=== PATIENT | female | born 1990 | race Hispanic/Latino ===

== ENCOUNTER 2018-09-06 19:24 | Inpatient (IN) | payer BC, OTHER ==
[~2018-09-06] VITALS: Ht 157.5 cm; Wt 82.6 kg
[2018-09-06] MEDS ORDERED: SODIUM CHLORIDE 0.9% 1000ML 1,000 ML IV ONE (20:05)
[2018-09-06 20:08] LABS: BILIRUBIN,URINE Negative (NEGATIVE); COLOR,URINE Yellow (YELLOW); GLUCOSE, URINE (UA) Negative (NEGATIVE); KETONES,URINE 15 mg/dL (NEGATIVE); LEUKOCYTE ESTERASE ,URINE Large (NEGATIVE); NITRATE,URINE Negative (NEGATIVE); OCCULT BLOOD,URINE Large (NEGATIVE); PROTEIN,URINE POS 2+ (NEGATIVE)
[2018-09-06 20:10] LABS: BASOPHILS % (AUTO) 0.1 % (0.0-5.0); EOSINOPHILS % (AUTO) 0.6 % (0.0-8.0); LYMPHOCYTES % (AUTO) 3.5 % (21.0-51.0); MEAN CORPUSCULAR HEMOGLOBIN 32.6 pg (27.0-33.0); MEAN CORPUSCULAR HGB CONC 33.5 g/dL (32.0-36.0); MEAN CORPUSCULAR VOLUME 97.3 fL (79-99); MONOCYTES % (AUTO) 2.6 % (3.0-13.0); NEUTROPHILS % (AUTO) 93.2 % (40.0-77.0); NUCLEATED RED BLOOD CELLS 0.1 % (0.0-0.19); PLATELET COUNT (AUTO) 201 K/uL (130-400); RED BLOOD CELL COUNT(AUTO) 4.62 MIL/uL (4.00-5.50); RED CELL DISTRIBUTION WIDTH 13.6 % (11.0-15.5)
[2018-09-06 20:20] LABS: APPEARANCE,URINE CLOUDY (CLEAR)
[2018-09-06 20:22] LABS: HCG,QUAL RESULT NEGATIVE (NEGATIVE)
[2018-09-06 20:28] LABS: BILIRUBIN,TOTAL 1.3 mg/dL (0.2-1.0); CREATININE 1.2 mg/dL (0.5-1.5); TOTAL PROTEIN, SERUM 8.2 g/dL (6.0-8.3)
[2018-09-06 20:39] LABS: POTASSIUM 2.9 mmol/L (3.5-5.1)
[2018-09-06 20:44] LABS: BACTERIA,URINE Few /HPF (None Seen); RBC,URINE 26-50 /HPF (0-1); SQUAMOUS EPITHELIAL CELL,UR 0-2 /HPF (0-2); WBC,URINE >100 /HPF (0-1)
[2018-09-06] MEDS ORDERED: CEFTRIAXONE SODIUM 1 GM ONE (20:51)
[2018-09-06] MEDS ORDERED: MAGNESIUM 2GM PREMIX 50ML 50 ML IV PRN (21:45)
[2018-09-06] MEDS ORDERED: POTASSIUM CHLORIDE 20MEQ/100ML 100 ML IV PRN (21:45)
[2018-09-06] MEDS ORDERED: POTASSIUM CHLORIDE 10% ELIXIR 20 MEQ/15 ML UDCUP PO PRN (21:45)
[2018-09-06] MEDS ORDERED: LIDOCAINE HCL-MPF 1% 2ML VIAL IVP PRN (21:45)
[2018-09-06] MEDS: CEFTRIAXONE SODIUM 1 GM IVP SCH (22:00)
[2018-09-06] MEDS ORDERED: KETOROLAC TROMETHAMINE 30MG/ML ONE (22:01)
[2018-09-06 22:11] LABS: PHOSPHORUS 2.5 mg/dL (2.5-4.9); THYROID STIMULATING HORMONE 0.87 uIU/mL (0.36-3.74)
[2018-09-06] MEDS ORDERED: POTASSIUM CHLORIDE 20MEQ/100ML 100 ML IV ONE (22:40)
[2018-09-06] MEDS ORDERED: LIDOCAINE HCL-MPF 1% 2ML VIAL ONE (22:41)
[2018-09-06 23:15] VITALS: BP 102/64
[2018-09-06] MEDS: POTASSIUM CHLORIDE 20 MEQ ERTAB PO PRN (23:52)
[2018-09-06] MEDS: SODIUM CHLORIDE 0.9% 1000ML 1,000 ML IV SCH (23:52)
[2018-09-07] MEDS: MORPHINE SULFATE 4 MG/1ML SYG IV PRN ×3 (01:31→17:06)
[2018-09-07] MEDS: POTASSIUM CHLORIDE 20 MEQ ERTAB PO PRN ×2 (02:27→05:25)
[2018-09-07 04:00] VITALS: BP 98/54
[2018-09-07 05:20] LABS: BASOPHILS % (AUTO) 0.2 % (0.0-5.0); EOSINOPHILS % (AUTO) 1.7 % (0.0-8.0); HEMATOCRIT 37.4 % (36-48); LYMPHOCYTES % (AUTO) 7.1 % (21.0-51.0); MEAN CORPUSCULAR HGB CONC 33.4 g/dL (32.0-36.0); MEAN CORPUSCULAR VOLUME 98.8 fL (79-99); MONOCYTES % (AUTO) 3.7 % (3.0-13.0); NEUTROPHILS % (AUTO) 87.3 % (40.0-77.0); PLATELET COUNT (AUTO) 189 K/uL (130-400); RED BLOOD CELL COUNT(AUTO) 3.79 MIL/uL (4.00-5.50); RED CELL DISTRIBUTION WIDTH 13.8 % (11.0-15.5); WHITE BLOOD COUNT (AUTO) 13.6 K/uL (4.8-10.8)
[2018-09-07] MEDS: KETOROLAC TROMETHAMINE 30MG/ML IV PRN ×2 (05:25→13:18)
[2018-09-07 05:40] LABS: ALBUMIN 2.6 g/dL (3.5-5.0); BILIRUBIN,TOTAL 0.8 mg/dL (0.2-1.0); CREATININE 0.9 mg/dL (0.5-1.5); MAGNESIUM 2.6 mg/dL (1.80-2.40); POTASSIUM 3.7 mmol/L (3.5-5.1); TOTAL PROTEIN, SERUM 5.8 g/dL (6.0-8.3)
[2018-09-07 05:56] LABS: CRP QUANTITATIVE 274.1 mg/L (0.00-9.0)
[2018-09-07 08:00] VITALS: BP 105/77
[2018-09-07] MEDS: SODIUM CHLORIDE 0.9% 1000ML 1,000 ML IV SCH ×2 (09:39→17:10)
[2018-09-07] MEDS: PANTOPRAZOLE SODIUM 40 MG TABLET.DR PO SCH (09:39)
[2018-09-07] MEDS: ONDANSETRON HCL 4 MG/2 ML VIAL IV PRN ×2 (09:41→17:06)
[2018-09-07] MEDS: ENOXAPARIN SODIUM 30 MG/0.3 ML SQ SCH (09:41)
[2018-09-07 12:00] VITALS: BP 102/65
[2018-09-07 16:00] VITALS: BP 106/58
[2018-09-07 17:02] LABS: CREATININE 0.8 mg/dL (0.5-1.5); POTASSIUM 3.8 mmol/L (3.5-5.1)
[2018-09-07 19:00] VITALS: BP 106/62
[2018-09-07] MEDS: ACETAMINOPHEN 325 MG TAB PO PRN (20:40)
[2018-09-07] MEDS: CEFTRIAXONE SODIUM 1 GM IVP SCH (21:40)
[2018-09-07] MEDS ORDERED: KETOROLAC TROMETHAMINE 15MG/ML ONE (21:41)
[2018-09-07 23:00] VITALS: BP 100/60
[2018-09-08] MEDS: SODIUM CHLORIDE 0.9% 1000ML 1,000 ML IV SCH (00:16)
[2018-09-08 03:00] VITALS: BP 96/61
[2018-09-08 05:24] LABS: BASOPHILS % (AUTO) 0.2 % (0.0-5.0); EOSINOPHILS % (AUTO) 1.8 % (0.0-8.0); HEMATOCRIT 37.5 % (36-48); LYMPHOCYTES % (AUTO) 9.3 % (21.0-51.0); MEAN CORPUSCULAR HEMOGLOBIN 32.4 pg (27.0-33.0); MEAN CORPUSCULAR HGB CONC 32.8 g/dL (32.0-36.0); MEAN CORPUSCULAR VOLUME 98.7 fL (79-99); MONOCYTES % (AUTO) 5.8 % (3.0-13.0); NEUTROPHILS % (AUTO) 82.9 % (40.0-77.0); PLATELET COUNT (AUTO) 172 K/uL (130-400); RED CELL DISTRIBUTION WIDTH 13.9 % (11.0-15.5); WHITE BLOOD COUNT (AUTO) 9.8 K/uL (4.8-10.8)
[2018-09-08] MEDS: ONDANSETRON HCL 4 MG/2 ML VIAL IV PRN ×2 (05:30→17:11)
[2018-09-08] MEDS: ACETAMINOPHEN 325 MG TAB PO PRN ×2 (05:30→20:39)
[2018-09-08 06:06] LABS: CREATININE 0.8 mg/dL (0.5-1.5); MAGNESIUM 2.2 mg/dL (1.80-2.40); PHOSPHORUS 2.3 mg/dL (2.5-4.9); POTASSIUM 3.7 mmol/L (3.5-5.1); THYROID STIMULATING HORMONE 1.65 uIU/mL (0.36-3.74); URIC ACID 2.5 mg/dL (2.6-7.2)
[2018-09-08 06:20] LABS: CRP QUANTITATIVE 309.3 mg/L (0.00-9.0)
[2018-09-08] MEDS: MORPHINE SULFATE 2 MG/ML 1ML SYG IV PRN (06:47)
[2018-09-08 08:00] VITALS: BP 110/74
[2018-09-08] MEDS: KETOROLAC TROMETHAMINE 30MG/ML IV PRN ×2 (11:07→20:33)
[2018-09-08] MEDS: CEFTRIAXONE SODIUM 1 GM IVP SCH ×2 (11:08→21:40)
[2018-09-08] MEDS: PANTOPRAZOLE SODIUM 40 MG TABLET.DR PO SCH (11:09)
[2018-09-08] MEDS: ENOXAPARIN SODIUM 30 MG/0.3 ML SQ SCH (11:42)
[2018-09-08 12:00] VITALS: BP 117/77
[2018-09-08 16:00] VITALS: BP 109/75
[2018-09-08] MEDS: MORPHINE SULFATE 2 MG/ML 1ML SYG IVP PRN (17:13)
[2018-09-08 19:00] VITALS: BP 122/76
[2018-09-08 23:00] VITALS: BP 114/66
[2018-09-09] MEDS ORDERED: SODIUM CHLORIDE 0.9% 1000ML 1,000 ML IV ONE (00:48)
[2018-09-09 03:00] VITALS: BP 116/81
[2018-09-09] MEDS: KETOROLAC TROMETHAMINE 30MG/ML IV PRN (03:09)
[2018-09-09 05:37] LABS: HEMATOCRIT 34.4 % (36-48); MEAN CORPUSCULAR HEMOGLOBIN 33.4 pg (27.0-33.0); MEAN CORPUSCULAR HGB CONC 33.9 g/dL (32.0-36.0); MEAN CORPUSCULAR VOLUME 98.7 fL (79-99); PLATELET COUNT (AUTO) 226 K/uL (130-400); RED BLOOD CELL COUNT(AUTO) 3.49 MIL/uL (4.00-5.50); RED CELL DISTRIBUTION WIDTH 13.4 % (11.0-15.5); WHITE BLOOD COUNT (AUTO) 7.8 K/uL (4.8-10.8)
[2018-09-09 05:56] LABS: CREATININE 0.7 mg/dL (0.5-1.5); MAGNESIUM 1.8 mg/dL (1.80-2.40); PHOSPHORUS 2.5 mg/dL (2.5-4.9); POTASSIUM 3.4 mmol/L (3.5-5.1)
[2018-09-09 06:21] LABS: CRP QUANTITATIVE 222.7 mg/L (0.00-9.0)
[2018-09-09] MEDS: POTASSIUM CHLORIDE 20 MEQ ERTAB PO PRN ×2 (06:41→10:05)
[2018-09-09 07:30] VITALS: BP 114/80
[2018-09-09] MEDS: CEFTRIAXONE SODIUM 1 GM IVP SCH (10:04)
[2018-09-09] MEDS: PANTOPRAZOLE SODIUM 40 MG TABLET.DR PO SCH (10:05)
[2018-09-09] MEDS: ENOXAPARIN SODIUM 30 MG/0.3 ML SQ SCH (10:06)
[2018-09-09 11:00] VITALS: BP 119/76
[2018-09-09] MEDS ORDERED: SULFAMETHOX-TMP DS 800/160 TAB PO SCH ×2 (11:30→21:00)
[2018-09-09] MEDS: MORPHINE SULFATE 2 MG/ML 1ML SYG IV PRN (11:46)
[2018-09-09] MEDS ORDERED: TRAM50TA4 PO (14:30)
[2018-09-09] MEDS ORDERED: SULF1TAB42 PO (14:30)
[2018-09-09] MEDS: MORPHINE SULFATE 2 MG/ML 1ML SYG IVP PRN (14:44)
[2018-09-09 16:00] VITALS: BP 116/73
[2018-09-09] MEDS ORDERED: MORPHINE SULFATE 2 MG/ML 1ML SYG IVP ONE (16:00)
[2018-09-09] MEDS ORDERED: LACTULOSE 20 GM/30 ML UDCUP PO SCH (21:00)
== END 2018-09-09 16:26 | disposition home or self-care (01) | DRG 872 ==
LOC: EDH 19:24 → EDHIP 19:25 → 3BH 22:07
PROVIDERS: ADMIT Internal Medicine; ATTEND Internal Medicine
DX: A41.9 Sepsis, unspecified organism (principal); N10 Acute pyelonephritis; N17.9 Acute kidney failure, unspecified; R65.20 Severe sepsis without septic shock; E83.59 Other disorders of calcium metabolism; N29 Other disorders of kidney and ureter in diseases classified elsewhere; E87.6 Hypokalemia; E86.1 Hypovolemia; Z68.33 Body mass index [BMI] 33.0-33.9, adult; E66.9 Obesity, unspecified; E83.42 Hypomagnesemia; F17.210 Nicotine dependence, cigarettes, uncomplicated; N28.1 Cyst of kidney, acquired; B96.20 Unspecified Escherichia coli [E. coli] as the cause of diseases classified elsewhere; Z16.12 Extended spectrum beta lactamase (ESBL) resistance; Z79.899 Other long term (current) drug therapy
CPT/HCPCS: 36415; 74176; 76770; 80048; 80053; 80339; 81001; 81025; 83605; 83735; 83970; 84100; 84443; 84550; 84702; 85025; 85027; 86140; 87040; 87077; 87088; 87186; 93005; A4218; J0696; J1650; J1885; J2270; J2405; J3475; J3480; J3490; J7030

== ENCOUNTER 2023-02-16 14:59 | Emergency (ER) | payer MEDICAID ==
[~2023-02-16] VITALS: Ht 157.5 cm; Wt 56.2 kg
[~2023-02-16 14:59] MED LIST: SULF1TAB42 PO; TRAM50TA4 PO
[2023-02-16 15:10] VITALS: BP 128/81
[2023-02-16 16:29] LABS: BASOPHILS % (AUTO) 0.6 % (0.0-5.0); EOSINOPHILS % (AUTO) 1.7 % (0.0-8.0); HEMATOCRIT 39.9 % (36-48); LYMPHOCYTES % (AUTO) 17.9 % (21.0-51.0); MEAN CORPUSCULAR HEMOGLOBIN 30.7 pg (27.0-33.0); MEAN CORPUSCULAR HGB CONC 34.1 g/dL (32.0-36.0); MEAN CORPUSCULAR VOLUME 90.1 fL (79-99); MONOCYTES % (AUTO) 6.4 % (3.0-13.0); NEUTROPHILS % (AUTO) 73.1 % (40.0-77.0); PLATELET COUNT (AUTO) 259 K/uL (130-400); RED BLOOD CELL COUNT(AUTO) 4.43 MIL/uL (4.00-5.50); RED CELL DISTRIBUTION WIDTH 12.9 % (11.0-15.5)
[2023-02-16 16:39] LABS: CREATININE 0.7 mg/dL (0.5-1.5)
[2023-02-16 16:40] LABS: APPEARANCE,URINE CLEAR (CLEAR); BILIRUBIN,URINE NEGATIVE (NEGATIVE); COLOR,URINE LIGHT-YELLOW (YELLOW); GLUCOSE, URINE (UA) NEGATIVE (NEGATIVE); KETONES,URINE NEGATIVE (NEGATIVE); LEUKOCYTE ESTERASE ,URINE 500 Leu/uL (NEGATIVE); NITRATE,URINE NEGATIVE (NEGATIVE); OCCULT BLOOD,URINE NEGATIVE (NEGATIVE); PROTEIN,URINE NEGATIVE (NEGATIVE); UROBILINOGEN,URINE 0.2 mg/dL (0.2-1.0)
[2023-02-16 16:48] LABS: BACTERIA,URINE FEW /HPF (None Seen); MUCUS,URINE RARE LPF (None Seen); SQUAMOUS EPITHELIAL CELL,UR FEW /HPF (0-2)
[2023-02-16 17:17] LABS: TOTAL PROTEIN, SERUM 7.6 g/dL (6.0-8.3)
[2023-02-16] MEDS ORDERED: METOCLOPRAMIDE 10 MG/2 ML VIAL IVP ONE (17:30)
[2023-02-16] MEDS ORDERED: CEFTRIAXONE 1G VIAL IVPB ONE (17:30)
[2023-02-16] MEDS ORDERED: LACTATED RINGERS 1000ML 1,000 ML IV ONE (17:30)
[2023-02-16] MEDS ORDERED: POTASSIUM CHLORIDE 10% ELIXIR 20 MEQ/15 ML UDCUP PO ONE (18:00)
[2023-02-16] MEDS ORDERED: CEPH500T PO (18:12)
[2023-02-16] MEDS ORDERED: METO5 PO (18:12)
== END 2023-02-16 19:27 | disposition home or self-care (01) ==
LOC: EDH 14:59
DX: O21.9 Vomiting of pregnancy, unspecified (principal); O23.41 Unspecified infection of urinary tract in pregnancy, first trimester; N39.0 Urinary tract infection, site not specified; Z3A.10 10 weeks gestation of pregnancy; Z79.899 Other long term (current) drug therapy
CPT/HCPCS: 99285; 96365; 76801; 96375; 80053; 84702; 83690; 85025; 87088; 81001; 36415; J7120; J0696; J2765

== ENCOUNTER 2023-04-28 12:12 | Observation (INO) | payer MEDICAID ==
[~2023-04-28] VITALS: Ht 157.5 cm; Wt 63.5 kg
[~2023-04-28 12:12] MED LIST changes: +CEPH500T PO; +METO5 PO
[2023-04-28 12:13] VITALS: PULSE 95; RESP 17
[2023-04-28] MEDS ORDERED: LACTATED RINGERS 1000ML 1,000 ML IV ONE (13:00)
[2023-04-28] MEDS ORDERED: LACTATED RINGERS 1000ML 1,000 ML IV PRN (13:30)
[2023-04-28 13:42] LABS: APPEARANCE,URINE CLEAR (CLEAR); BILIRUBIN,URINE NEGATIVE (NEGATIVE); COLOR,URINE COLORLESS (YELLOW); GLUCOSE, URINE (UA) NEGATIVE (NEGATIVE); KETONES,URINE NEGATIVE (NEGATIVE); LEUKOCYTE ESTERASE ,URINE 250 Leu/uL (NEGATIVE); NITRATE,URINE NEGATIVE (NEGATIVE); OCCULT BLOOD,URINE NEGATIVE (NEGATIVE); PROTEIN,URINE NEGATIVE (NEGATIVE); UROBILINOGEN,URINE 0.2 mg/dL (0.2-1.0)
[2023-04-28 13:43] LABS: AMPHET/METH SCREEN,URINE NEGATIVE (NEGATIVE); BARBITURATE SCREEN, URINE NEGATIVE (NEGATIVE); BENZODIAZEPINES SCREEN,URINE NEGATIVE (NEGATIVE); CANNABINOID SCREEN,URINE NEGATIVE (NEGATIVE); COCAINE SCREEN,URINE NEGATIVE (NEGATIVE); OPIATE SCREEN,URINE NEGATIVE (NEGATIVE); PHENCYCLIDINE SCREEN,URINE NEGATIVE (NEGATIVE)
[2023-04-28 13:46] LABS: BACTERIA,URINE RARE /HPF (None Seen); RBC,URINE 0-1 /HPF (0-1); SQUAMOUS EPITHELIAL CELL,UR RARE /HPF (0-2)
[2023-04-28] MEDS ORDERED: CEFTRIAXONE 1G VIAL IVPB ONE (14:30)
[2023-04-28 15:46] VITALS: BP 108/74
== END 2023-04-28 16:05 | disposition home or self-care (01) ==
LOC: EDH 12:12 → LDH 12:13
PROVIDERS: ADMIT Internal Medicine; ATTEND Internal Medicine
DX: O23.42 Unspecified infection of urinary tract in pregnancy, second trimester (principal); Z3A.21 21 weeks gestation of pregnancy
CPT/HCPCS: 96361; 96365; 80305; 87088; 81001; 76805; G0378 ×4; G0379; J7120 ×2; J0696; 96360

== ENCOUNTER 2023-06-09 21:07 | Observation (INO) | payer MEDICAID ==
[~2023-06-09] VITALS: Ht 157.5 cm; Wt 69.9 kg
[2023-06-09 21:19] VITALS: BP 123/70; PULSE 72; RESP 20
[2023-06-09 22:03] LABS: APPEARANCE,URINE CLEAR (CLEAR); BILIRUBIN,URINE NEGATIVE (NEGATIVE); COLOR,URINE COLORLESS (YELLOW); GLUCOSE, URINE (UA) NEGATIVE (NEGATIVE); KETONES,URINE NEGATIVE (NEGATIVE); LEUKOCYTE ESTERASE ,URINE 250 Leu/uL (NEGATIVE); NITRATE,URINE NEGATIVE (NEGATIVE); OCCULT BLOOD,URINE NEGATIVE (NEGATIVE); PROTEIN,URINE NEGATIVE (NEGATIVE); UROBILINOGEN,URINE 0.2 mg/dL (0.2-1.0)
[2023-06-09 22:05] LABS: ADD UA MICROSCOPIC YES
[2023-06-09 22:07] LABS: BACTERIA,URINE RARE /HPF (None Seen); RBC,URINE 0-1 /HPF (0-1); SQUAMOUS EPITHELIAL CELL,UR FEW /HPF (0-2)
[2023-06-09 22:11] LABS: AMPHET/METH SCREEN,URINE NEGATIVE (NEGATIVE); BARBITURATE SCREEN, URINE NEGATIVE (NEGATIVE); BENZODIAZEPINES SCREEN,URINE NEGATIVE (NEGATIVE); CANNABINOID SCREEN,URINE NEGATIVE (NEGATIVE); COCAINE SCREEN,URINE NEGATIVE (NEGATIVE); OPIATE SCREEN,URINE NEGATIVE (NEGATIVE); PHENCYCLIDINE SCREEN,URINE NEGATIVE (NEGATIVE)
== END 2023-06-09 23:05 | disposition home or self-care (01) ==
LOC: EDH 21:07 → LDH 21:08
PROVIDERS: ADMIT Obstetrics & Gynecology; ATTEND Obstetrics & Gynecology
DX: O36.8120 Decreased fetal movements, second trimester, not applicable or unspecified (principal); Z3A.28 28 weeks gestation of pregnancy; Z79.899 Other long term (current) drug therapy
CPT/HCPCS: 59025; 80305; 87088; 81001; G0378; G0379

== ENCOUNTER 2023-07-22 20:55 | Observation (INO) | payer MEDICAID ==
[~2023-07-22] VITALS: Ht 157.5 cm; Wt 73.5 kg
[2023-07-22 21:04] VITALS: BP 107/66; PULSE 79; RESP 18
[2023-07-22 21:30] LABS: APPEARANCE,URINE CLEAR (CLEAR); BILIRUBIN,URINE NEGATIVE (NEGATIVE); COLOR,URINE COLORLESS (YELLOW); GLUCOSE, URINE (UA) NEGATIVE (NEGATIVE); KETONES,URINE NEGATIVE (NEGATIVE); LEUKOCYTE ESTERASE ,URINE 500 Leu/uL (NEGATIVE); NITRATE,URINE NEGATIVE (NEGATIVE); OCCULT BLOOD,URINE NEGATIVE (NEGATIVE); PROTEIN,URINE NEGATIVE (NEGATIVE); UROBILINOGEN,URINE 0.2 mg/dL (0.2-1.0)
[2023-07-22 21:34] LABS: ADD UA MICROSCOPIC YES
[2023-07-22 21:37] LABS: BACTERIA,URINE FEW /HPF (None Seen); MUCUS,URINE RARE LPF (None Seen); SQUAMOUS EPITHELIAL CELL,UR FEW /HPF (0-2); WBC,URINE 51-100 /HPF (0-1)
== END 2023-07-22 22:20 | disposition home or self-care (01) ==
LOC: EDH 20:55 → LDH 21:15
PROVIDERS: ADMIT Internal Medicine; ATTEND Internal Medicine
DX: O99.891 Other specified diseases and conditions complicating pregnancy (principal); M54.9 Dorsalgia, unspecified; R10.9 Unspecified abdominal pain; O26.853 Spotting complicating pregnancy, third trimester; Z3A.34 34 weeks gestation of pregnancy
CPT/HCPCS: 87088; 81001; G0379; G0378

== ENCOUNTER 2023-10-28 13:43 | Emergency (ER) | payer MEDICAID ==
[~2023-10-28] VITALS: Ht 157.5 cm; Wt 64.4 kg
[~2023-10-28 13:43] MED LIST changes: +ACET-2079 PO; -CEPH500T PO; +FERS325 PO; +IBUP-2070 PO; -METO5 PO; -SULF1TAB42 PO; -TRAM50TA4 PO
[2023-10-28 13:48] VITALS: BP 146/86
[2023-10-28] MEDS ORDERED: IPRATROPIUM/ALBUTEROL SULFATE 3 ML SOLUTION IH ONE (15:00)
[2023-10-28 15:18] LABS: BASOPHILS # (AUTO) 0.05 K/uL (0.00-0.20); BASOPHILS % (AUTO) 0.7 % (0.0-5.0); EOSINOPHILS # (AUTO) 0.62 K/uL (0.00-0.70); EOSINOPHILS % (AUTO) 8.5 % (0.0-8.0); HEMATOCRIT 42.1 % (36-48); IMMATURE GRANULOCYTE ABSOLUTE 0.02 K/uL (0-1); LYMPHOCYTES # (AUTO) 1.8 K/uL (1.0-4.8); LYMPHOCYTES % (AUTO) 24.4 % (21.0-51.0); MEAN CORPUSCULAR HEMOGLOBIN 28.4 pg (27.0-33.0); MEAN CORPUSCULAR HGB CONC 32.3 g/dL (32.0-36.0); MEAN CORPUSCULAR VOLUME 87.9 fL (79-99); MONOCYTES # (AUTO) 0.5 K/uL (0.1-1.0); NEUTROPHILS # (AUTO) 4.3 K/uL (1.8-7.7); NEUTROPHILS % (AUTO) 59.1 % (40.0-77.0); PLATELET COUNT (AUTO) 274 K/uL (130-400); RED BLOOD CELL COUNT(AUTO) 4.79 MIL/uL (4.00-5.50); RED CELL DISTRIBUTION WIDTH 13.9 % (11.0-15.5); WHITE BLOOD COUNT (AUTO) 7.3 K/uL (4.8-10.8)
[2023-10-28 15:36] VITALS: PULSE 62; RESP 24
[2023-10-28 15:55] LABS: INFLUENZA TYPE A Negative For Type A (NEGATIVE); INFLUENZA TYPE B Negative For Type B (NEGATIVE)
[2023-10-28 15:56] LABS: COVID19 (SARS ANTIGEN RAPID) PRESUMPTIVE NEGATIVE (NEGATIVE)
[2023-10-28 15:57] LABS: ALBUMIN 4.2 g/dL (3.5-5.0); BILIRUBIN,TOTAL 0.5 mg/dL (0.2-1.0); CREATININE 0.9 mg/dL (0.5-1.5); THYROID STIMULATING HORMONE 0.67 uIU/mL (0.36-3.74); TOTAL PROTEIN, SERUM 8.1 g/dL (6.0-8.3)
[2023-10-28 15:59] LABS: POTASSIUM 2.8 mmol/L (3.5-5.1)
[2023-10-28 16:26] LABS: B-TYPE NATRIURETIC PEPTIDE 13 pg/mL (0-100)
[2023-10-28] MEDS ORDERED: KCL 20 MEQ ERTAB PO ONE (17:00)
[2023-10-28] MEDS ORDERED: ALBUHFA IH (17:39)
[2023-10-28] MEDS ORDERED: PRED20TA3 PO (17:39)
[2023-10-28] MEDS ORDERED: PREDNISONE 20 MG TABLET PO ONE (18:00)
== END 2023-10-28 18:01 | disposition home or self-care (01) ==
LOC: EDH 13:43
DX: R06.2 Wheezing (principal); F32.A Depression, unspecified; E87.6 Hypokalemia; J98.01 Acute bronchospasm; Z79.52 Long term (current) use of systemic steroids; Z20.822 Contact with and (suspected) exposure to COVID-19
CPT/HCPCS: 36415; 71045; 80053; 82550; 83880; 84443; 84484; 85025; 87426; 87804; 93005; 94640